=== PATIENT | male | born 1945 | race Caucasian/White ===

== ENCOUNTER → 2016-09-09 12:49 | Emergency (ER) | payer BC ==
[~2016-09-09 12:49] MED LIST: ALTA2.5 PO; AMB5 PO; ASAB PO; BYSTOLIC10 MG PO; CATAFLAM50 MG PO; CRESTOR10 PO; DIOVAN HC2 PO; FLOMAX4 PO; GLUCOPHAGE1000 MG PO; NEUR300 PO; NORCO1 TA1 PO; NORV10 PO; NORV5 PO; PLAVIX PO; PROTONIX PO; PROVHFA INH; REQUIP2 PO; VICODINTAB PO; Z300 PO; ZOCOR20 PO
== END | disposition left against medical advice (07) ==
LOC: ER 12:49
DX: R07.9 Chest pain, unspecified (principal); J45.909 Unspecified asthma, uncomplicated; I10 Essential (primary) hypertension; E11.9 Type 2 diabetes mellitus without complications; K21.9 Gastro-esophageal reflux disease without esophagitis; Z95.1 Presence of aortocoronary bypass graft; Z79.84 Long term (current) use of oral hypoglycemic drugs; Z79.899 Other long term (current) drug therapy; Z79.82 Long term (current) use of aspirin
CPT/HCPCS: 99285